=== PATIENT | male | born 1975 | race Caucasian/White ===

== ENCOUNTER 2018-12-20 19:51 | Emergency (ER) | payer OTHER, MEDICAID ==
[2018-12-20 20:05] VITALS: BP 129/91
[2018-12-20] MEDS ORDERED: TETRACAINE HCL 0.5% OPH SOLN 4 ML ONE (20:27)
--- NOTE | 2018-12-20 20:37 | ER Document Report ---
HPI - HPI Pain Level: 5 Notes: 5-year-old male presents to ED with complaints of left eye redness and feels like there is a foreign body in there. Was working with metal yesterday. Patient states his tetanus is up-to-date. No disease having eye erythema, pain, some photosensitivity. Patient has not tried any [id number] medications, worse with time, nothing makes better. has not been seen by his primary care provider. does not wear contacts. Denies fevers, chills, chest pain, palpitations, shortness of breath, dyspnea, nausea, vomiting, diarrhea, abdominal pain, hematuria,blurred vision, double vision, loss of vision, speech changes, LH, dizziness, syncope, headaches, wheezing, ST, URI, neck pain, weakness, bowel or bladder dysfunction, saddle anesthesia, numbness or tingling in bilateral upper or lower extremities equally, muscle paralysis, weakness in bilateral upper or lower extremities equally or rash. Past Medical History - General Information source: Patient - Social History Smoking Status: Unknown if Ever Smoked Family History: Reviewed & Not Pertinent Vertical Provider Document - CONSTITUTIONAL Agree With Documented VS: Yes Exam Limitations: No Limitations Notes: PHYSICAL EXAMINATION: GENERAL: Well-appearing, well-nourished and in no acute distress. HEAD: Atraumatic, normocephalic. EYES: Pupils equal round and reactive to light, extraocular movements intact, sclera anicteric, left conjunctive a with erythema, sclera with erythema. Fluostain wnl. PERRLA, normal accommodation, EMOI, peripheral vision bilaterally and equally. no exudates noted. red reflex wnl. fluostain on the left shows that patient has a left foreign body, likely wood, negative for corneal abrasion, foreign body, dendrites, or ulcer. Normal fundi and optic discs. Corneas grossly clear. No nystagmus bilaterally. No ptosis, photophobia. v ENT: Nares patent, oropharynx clear without exudates. Moist mucous membranes. NECK: Normal range of motion, supple without lymphadenopathy LUNGS: Breath sounds clear to auscultation bilaterally and equal. No wheezes rales or rhonchi. HEART: Regular rate and rhythm without murmurs ABDOMEN: Soft, nontender, nondistended abdomen. No guarding, no rebound. No masses appreciated. Musculoskeletal: Normal range of motion, no pitting or edema. No cyanosis. NEUROLOGICAL: Cranial nerves grossly intact. Normal speech, normal gait. Normal sensory, motor exams PSYCH: Normal mood, normal affect. SKIN: Warm, Dry, normal turgor, no rashes or lesions noted. - INFECTION CONTROL TRAVEL OUTSIDE OF THE [place] IN LAST 30 DAYS: No Course - Vital Signs Vital signs: Temp Pulse Resp BP Pulse Ox 98.0 F 74 20 129/91 H 96 12/20/18 20:03 12/20/18 20:03 12/20/18 20:03 12/20/18 20:03 12/20/18 20:03 Procedures - Eye Procedure Left Time completed: 20:40 Foreign body removal: Left Alcaine Drops Administered: Yes Acular drops administered: Bilateral Fluorescein applied: Bilateral Antibiotic Oinment/Drps Admin: Both eyes Slit lamp used: No Notes: 12/20/18 20:40 Tetracaine administered, while doing floor stain. months noted speck of would at 3:00. Verbal consent given for removal of foreign body, 18-gauge needle utilized to remove foreign body, foreign body completely removed. Patient given Vigamox drops while in the emergency room as well as sterile eye ointment for corneal abrasion. Does need follow-up with eye doctor tomorrow. Patient pot tolerated procedure without distress Discharge - Discharge Clinical Impression: Left corneal abrasion, left foreign body Condition: Stable Disposition: HOME, SELF-CARE Instructions: Conjunctivitis ([facility]), Eyedrop Use ([facility]), Antibiotic Therapy ([facility]), Corneal Abrasion ([facility]) Additional Instructions: follow up with eye doctor tomorrow. Use antibiotic drops as directed as well as using Systane eye ointment. Return immediately for any new or worsening symptoms. Follow up with primary care provider, call tomorrow to make followup appointment. Prescriptions: Moxifloxacin HCl [Vigamox 0.5% Oph Soln 3 ml] 1 drop OP ASDIR PRN #1 bottle PRN Reason: Forms: Return to Work Referrals: SOLOMON CONDON MD [COMMUNITY BASED STAFF] - Follow up as needed LAYA BROWN DO [ACTIVE STAFF] - Follow up tomorrow
[2018-12-20] MEDS ORDERED: MINERAL OIL/PETROLATUM,WHITE OPH OINT 3.5 GM OS ONE (20:41)
== END 2018-12-20 20:54 | disposition home or self-care (01) ==
LOC: ER 19:51
DX: T15.92XA Foreign body on external eye, part unspecified, left eye, initial encounter (principal); X58.XXXA Exposure to other specified factors, initial encounter
CPT/HCPCS: 99283; 65205; J3490 ×2